=== PATIENT | male | born 1935 | race Hispanic/Latino ===

== ENCOUNTER 2019-03-06 09:44 | Day surgery (SDC) | payer OTHER ==
[~2019-03-06 09:44] MED LIST: NACL 0.9% 1000 ML 1,000 ML IV SCH
--- NOTE | 2019-03-06 11:28 | Anesthesia Day of Surgery ---
Anesthesia Day of Surgery - Day of Surgery Patient Examined: Yes Patient H&P Reviewed: Yes Patient is NPO: Yes
--- NOTE | 2019-03-06 11:32 | Anesthesia Consultation ---
Anesthesia Consult and Med Hx Date of service: 03/06/19 - Airway Anesthetic Teeth Evaluation: Good (Six teeth) ROM Head & Neck: Adequate Mental/Hyoid Distance: Adequate Mallampati Class: Class III (Small mouth opening) Intubation Access Assessment: Probably Good - Pre-Operative Health Status ASA Pre-Surgery Classification: ASA3 Proposed Anesthetic Plan: MAC - Pulmonary Hx Smoking: Yes SOB: Yes (Hx lung ca and lung surgery) Home Oxygen Therapy: Yes Hx Pneumonia: Yes (Last fall) - Cardiovascular System Hx Hypertension: Yes Hx Peripheral Vascular Disease: Yes (Stents in legs) - Gastrointestinal Hx Ulcer: Yes Hx Gastroesophageal Reflux Disease: Yes - Endocrine Hx Non-Insulin Dependent Diabetes: No (Adrenal insufficiency. On home steroids) - Other Systems Hx Cancer: Yes (BASAL CELL CA NOSE) - Additional Comments Anesthesia Medical History Comments: Fifty-pound weight loss over the past few months
[2019-03-06] MEDS ORDERED: DIPRIVAN 10 MG/ML IV ONE (12:15)
--- NOTE | 2019-03-06 12:50 | Procedure Note ---
Date of procedure: 03/06/19 Pre-op diagnosis: Nausea,Vomiting and Weight Loss Post-op diagnosis: other (Gastric Lesion in the Proximal stomach and Antrum, possibly neoplastic (biopsies done)/ No Esophageal Stenosis or Pyloric Stenosis noted/Normal Duodenum) Procedure: EGD with Biopsy Anesthesia: MILY Surgeon: FELIPA SHARP Estimated blood loss: minimal Pathology: list Specimen disposition: to lab Condition: stable Disposition: same day (Avoid aspirin and NSAID, await for the biopsy results and to check for tumor markers and follow up in 1 to 2 weeks ([phone]).)
--- NOTE | 2019-03-06 13:17 | Operative Report ---
PROCEDURE: EGD with biopsy. INDICATIONS: An 83-year-old white male who has a prior history of lung cancer, recent history of basal cell carcinoma, for which he has been getting radiation treatment. He states that he had an EGD done a few months back and was told that he had a peptic ulcer disease. Since then, he has been progressively losing weight and has lost about 20 pounds. Lately, he has been having some problems with nausea and vomiting. EGD was done to assess for the problem. DESCRIPTION OF PROCEDURE: Procedure was done after getting informed consent with MAC anesthesia. Instrument was passed through the hypopharynx into the esophagus, which showed normal mucosa and there was no narrowing of the esophagus. In the proximal stomach, right below in the cardia, there was what looked like a gastric lesion, possibly a gastric neoplasm. Photo documentation and biopsy was obtained. There was an additional lesion noted in the distal stomach, which gave the mucosa a lobulated appearance. Photo documentation and biopsy was obtained. The pylorus was patent. The duodenum in the first and second portion appeared normal. There was minimal bleeding from the biopsy sites. ASSESSMENT: Gastric lesions involving the proximal stomach in the cardia and also involving the antrum and mild distal esophagitis. There was minimal bleeding from the biopsy sites. No complications associated with the procedure. Plan is to wait for the biopsy results and to check for tumor markers, namely CEA and CA-125. The patient will be asked to avoid aspirin and aspirin-related products for the next few days and follow up in the office in 1-2 weeks' time. The patient may require a CT scan of the abdomen for further assessment which will be done as an outpatient. The procedure was done in the GI lab with assistance of anesthesia and in the presence and with the assistance of the GI lab team, which included GUI Powers as well as miguel angel Salgado. The patient did not require any esophageal dilation to be done. JOB# [id number] DELLA/ROSSY
[2019-03-06 13:19] VITALS: BP 138/57
--- NOTE | 2019-03-06 13:52 | Consultation ---
HISTORY OF PRESENT ILLNESS: An 83-year-old white male who has a prior history of lung cancer as well as basal cell carcinoma, for which he has received radiation treatment. He has lately been losing weight. He has lost over 30 pounds over the last several months. He states that he had an EGD done a few months back at the [facility], which has shown presence of an ulcer. At present, he has been having problems with swallowing, dysphagia as well as nausea, vomiting and he is to have an EGD done for further assessment. ALLERGIES: He has a history of allergy to AMOXICILLIN and DILAUDID. SOCIAL HISTORY: Denies history of smoking or alcohol use. No cardiac issues. He has had his flu shots. PHYSICAL EXAMINATION: VITAL SIGNS: He is afebrile, blood pressure 132/80, pulse is 89, height is 6 feet 1 inch, weight is 151 pounds. HEENT: Shows no JVD. LUNGS: Shows reduced breath sounds. CARDIOVASCULAR: Normal. ABDOMEN: Soft. Bowel sounds present. NEUROLOGIC: He is alert and oriented. He appears to be quite emaciated. ASSESSMENT: Dysphagia, weight loss, history of lung cancer, basal cell cancer for radiation treatment. PLAN: To do an EGD with dilation at [facility] on 03/06/2019. JOB# [id number] DELLA/NTS
== END 2019-03-06 09:45 | disposition home or self-care (01) ==
LOC: GIO 09:44
DX: C16.9 Malignant neoplasm of stomach, unspecified (principal); K30 Functional dyspepsia; R63.4 Abnormal weight loss; E11.51 Type 2 diabetes mellitus with diabetic peripheral angiopathy without gangrene; I73.9 Peripheral vascular disease, unspecified; E78.00 Pure hypercholesterolemia, unspecified; I10 Essential (primary) hypertension; K21.9 Gastro-esophageal reflux disease without esophagitis; Z85.118 Personal history of other malignant neoplasm of bronchus and lung; Z85.89 Personal history of malignant neoplasm of other organs and systems; Z79.899 Other long term (current) drug therapy; Z88.6 Allergy status to analgesic agent; Z87.891 Personal history of nicotine dependence; Z79.82 Long term (current) use of aspirin; Z98.890 Other specified postprocedural states
CPT/HCPCS: 36415; 43239; 82378; 86304; 88305; 88341; 88342; 88368; J2704; J7030